=== PATIENT | female | born 1990 | race Two or more races ===

== ENCOUNTER 2024-01-03 06:40 | Inpatient (IN) | payer BC ==
[2024-01-03] MEDS: ELECTROLYTE-148 SOLN 1,000 ML IV SCH (08:30)
[2024-01-03 08:51] VITALS: BMI 26.4
[2024-01-03] MEDS ORDERED: BUTORPHANOL TARTRATE 2 MG/ML VIAL ONE (08:58)
[2024-01-03] MEDS ORDERED: PROMETHAZINE HCL 25 MG/1 ML VIAL ONE (08:59)
[2024-01-03] MEDS: PROMETHAZINE HCL 25 MG/1 ML VIAL IVPB ONE (09:00)
[2024-01-03] MEDS: BUTORPHANOL TARTRATE 2 MG/ML VIAL IVPB ONE (09:00)
[2024-01-03 09:29] LABS: BASO % 0.2 % (0-2.0); EOS % 0.4 % (0-4.5); HEMATOCRIT 29.9 % (32.4-45.2); HEMOGLOBIN 9.7 GM/dL (10.7-15.3); LYMPH % 23.1 % (8-40); MCH 19.3 pg (25.7-33.7); MCHC 32.3 g/dl (32.0-36.0); MEAN CELL VOLUME 59.6 fl (80-96); MEAN PLT VOLUME 9.2 fl (7.5-11.1); MONO % 7.3 % (3.8-10.2); PLATELET COUNT 193 10^3/uL (134-434); RBC 5.01 M/mm3 (3.60-5.2); RDW 17.1 % (11.6-15.6); WHITE BLOOD COUNT 11.3 K/mm3 (4.0-10.0)
[2024-01-03 09:30] LABS: INR 0.93 (0.83-1.09); PROTHROMBIN TIME (PATIENT) 10.7 SEC (9.7-13.0)
[2024-01-03 09:33] LABS: ACTIVATED PTT 27.2 SECONDS (25.2-36.5)
[2024-01-03 09:42] LABS: POTASSIUM 3.9 mmol/L (3.5-5.1)
[2024-01-03 09:43] LABS: CALCIUM 8.8 mg/dL (8.5-10.1)
[2024-01-03 09:44] LABS: BLOOD UREA NITROGEN 6.2 mg/dL (7-18)
[2024-01-03 09:47] LABS: CREATININE 0.6 mg/dL (0.55-1.3)
[2024-01-03 09:55] LABS: ANISOCYTOSIS 2+; MACROCYTOSIS 0
[2024-01-03] MEDS ORDERED: FENTANYL/BUPIVACAINE/NS/PF - PCEA - 50 ML DISP.SYRIN EP ONE ×2 (10:29→15:30)
[2024-01-03] MEDS ORDERED: NALOXONE HCL 0.4 MG/ML VIAL IVPUSH PRN (10:32)
[2024-01-03] MEDS ORDERED: FENTANYL CITRATE/PF 50 MCG/ML VIAL ONE (10:34)
[2024-01-03] MEDS ORDERED: BUPIVACAINE HCL/PF 0.25% (2.5MG/ML) 10 ML VIAL ONE (10:34)
[2024-01-03] MEDS: FENTANYL/BUPIVACAINE/NS/PF - PCEA - 50 ML DISP.SYRIN EP SCH (10:40)
[2024-01-03 11:45] LABS: SYPHILIS W/ RPR CONF NON-REACTIVE (NONREACTIVE)
[2024-01-03 12:14] LABS: HIV INTERPRETATION NEGATIVE (NEGATIVE)
[2024-01-03] MEDS ORDERED: OXYTOCIN 30 UNITS in 0.9% NS 30 UNIT/500 ML INFUS.BAG IVPB ONE (12:22)
[2024-01-03] MEDS ORDERED: OXYTOCIN 30 UNITS in 0.9% NS 30 UNIT/500 ML INFUS.BAG IVPB SCH (15:00)
[2024-01-03] MEDS ORDERED: OXYTOCIN 20 UNITS in 0.9% NS 20 UNIT/1,000 ML INFUS.BAG IV ONE (15:42)
[2024-01-03] MEDS ORDERED: ACETAMINOPHEN 325 MG TABLET (FP) PO PRN (16:35)
[2024-01-03] MEDS ORDERED: BENZOCAINE 28 GM HEMORRHOIDAL OINTMENT TP PRN (16:35)
[2024-01-03] MEDS ORDERED: BISACODYL 10 MG SUPP.RECT RC PRN (16:35)
[2024-01-03] MEDS ORDERED: METHYLERGONOVINE MALEATE 0.2 MG/1 ML AMP IM PRN (16:35)
[2024-01-03] MEDS ORDERED: WITCH HAZEL 50% (TUCKS) 40 PAD/JAR PAD TP PRN (16:35)
[2024-01-03] MEDS ORDERED: oxyCODONE HCL 5 MG TABLET PO PRN (16:35)
[2024-01-03] MEDS ORDERED: BENZOCAINE 20% 57 GM BOTTLE TP PRN (16:35)
[2024-01-03] MEDS: OXYTOCIN 20 UNITS in 0.9% NS 20 UNIT/1,000 ML INFUS.BAG IV SCH (17:00)
[2024-01-03] MEDS: IBUPROFEN 600 MG TABLET (FP) PO PRN (18:30)
[2024-01-03] MEDS ORDERED: IBUPROFEN 600 MG TABLET (FP) PO ONE (18:31)
[2024-01-03 20:05] VITALS: RESP 18
[2024-01-04 06:47] LABS: BASO % 0.2 % (0-2.0); EOS % 0.7 % (0-4.5); HEMATOCRIT 28.4 % (32.4-45.2); HEMOGLOBIN 9.1 GM/dL (10.7-15.3); LYMPH % 14.3 % (8-40); MEAN CELL VOLUME 60.6 fl (80-96); MEAN PLT VOLUME 9.7 fl (7.5-11.1); MONO % 8.7 % (3.8-10.2); NEUT % 76.1 % (42.8-82.8); PLATELET COUNT 198 10^3/uL (134-434); RBC 4.69 M/mm3 (3.60-5.2); RDW 17.3 % (11.6-15.6); WHITE BLOOD COUNT 15.9 K/mm3 (4.0-10.0)
[2024-01-04 07:12] LABS: MCH 19.4 pg (25.7-33.7)
[2024-01-04] MEDS: FERROUS SO4 325 MG TABLET (FP) PO SCH (09:07)
[2024-01-04] MEDS: PRENATAL VITAMINS W/ FOLIC ACID TABLET (FP) PO SCH (09:07)
[2024-01-04] MEDS ORDERED: SENNOSIDES/DOCUSATE COMBO (SENNA PLUS) TABLET (UD) PO PRN (22:00)
[2024-01-05] MEDS: ELECTROLYTE-148 SOLN 1,000 ML IV SCH (07:24)
[2024-01-05 09:05] VITALS: BP 104/53; PULSE 70; TEMP 97.9
== END 2024-01-05 13:00 | disposition home or self-care (01) | DRG 807 ==
LOC: JDEL 06:40 → JLDR 07:50 → J3W 19:30
PROVIDERS: ADMIT Obstetrics & Gynecology; ATTEND Obstetrics & Gynecology
PROC: 10E0XZZ Delivery of Products of Conception, External Approach (ICD-10-PCS; principal; 2024-01-03)
DX: O60.23X0 Term delivery with preterm labor, third trimester, not applicable or unspecified (principal); Z37.0 Single live birth; Z3A.38 38 weeks gestation of pregnancy
CPT/HCPCS: 36415; 59409; 80048; 85025; 85610; 85730; 86780; 86803; 86850; 86900; 86901; 87389